=== PATIENT | male | born 1975 | race Asian ===

== ENCOUNTER 2024-01-17 05:11 | Emergency (ER) | payer BC, OTHER ==
[2024-01-17 05:44] VITALS: BP 145/89; PULSE 76; RESP 18; TEMP 98.2; BMI 25.0
[2024-01-17] MEDS ORDERED: ACETAMINOPHEN 325 MG TABLET (FP) ONE (05:54)
[2024-01-17] MEDS: ACETAMINOPHEN 325 MG TABLET (FP) PO ONE (06:20)
[2024-01-17 06:25] LABS: BASO % 0.6 % (0-2.0); EOS % 2.1 % (0-4.5); HEMATOCRIT 38.5 % (35.4-49); HEMOGLOBIN 12.5 GM/dL (11.7-16.9); LYMPH % 46.6 % (8-40); MCH 26.3 pg (25.7-33.7); MCHC 32.5 g/dl (32.0-35.9); MEAN CELL VOLUME 80.9 fl (80-96); MEAN PLT VOLUME 8.4 fl (7.5-11.1); MONO % 12.8 % (3.8-10.2); NEUT % 37.9 % (42.8-82.8); PLATELET COUNT 231 10^3/uL (134-434); RBC 4.76 M/mm3 (4.00-5.60); RDW 14.3 % (11.9-15.9); WHITE BLOOD COUNT 3.5 K/mm3 (4.0-10.0)
[2024-01-17 06:55] LABS: POTASSIUM 4.5 mmol/L (3.5-5.1)
[2024-01-17 06:57] LABS: CALCIUM 8.9 mg/dL (8.5-10.1)
[2024-01-17 06:58] LABS: ALBUMIN 3.9 g/dl (3.4-5.0); BLOOD UREA NITROGEN 13.8 mg/dL (7-18); MAGNESIUM 2.1 mg/dL (1.8-2.4)
[2024-01-17 07:01] LABS: CREATININE 0.9 mg/dL (0.55-1.3)
[2024-01-17 07:03] LABS: TOT PROT 7.7 g/dl (6.4-8.2)
[2024-01-17 07:12] LABS: INR 1.07 (0.83-1.09); PROTHROMBIN TIME (PATIENT) 12.1 SEC (9.7-13.0)
[2024-01-17 07:14] LABS: ACTIVATED PTT 33.9 SECONDS (25.2-36.5)
== END 2024-01-17 07:38 | disposition home or self-care (01) ==
LOC: JER 05:11
DX: R07.89 Other chest pain (principal)
CPT/HCPCS: 36415; 71046-TC-FY; 80053; 83735; 84484; 85025; 85610; 85730; 93005; 93010; 99285-25

== ENCOUNTER 2025-02-09 15:18 | Emergency (ER) | payer BC, OTHER ==
[2025-02-09 15:25] VITALS: TEMP 98.1; BMI 26.6
[2025-02-09 17:03] LABS: ABSOLUTE IMMATURE GRANULOCYTES 0.01 x10^3/uL (0.0-0.031); BASOPHILS # 0.02 x10^3/uL (0.01-0.08); EOSINOPHIL % 3.3 % (0.8-7.0); EOSINOPHILS # 0.15 x10^3/uL (0.04-0.54); MCHC 31.4 g/dl (32.3-36.5); MEAN CELL VOLUME 87.2 fl (79.0-92.2); MEAN PLT VOLUME 9.7 fl (9.4-12.4); MONOCYTE # 0.42 x10^3/uL (0.30-0.82); MONOCYTE % 9.3 % (5.3-12.2); RDW 12.1 % (12.2-16.1)
[2025-02-09 17:24] LABS: GLUCOSE,RANDOM 118.0 mg/dL (74-106); TOT PROT 7.7 g/dl (6.4-8.2)
[2025-02-09 17:25] LABS: CO2 23.0 mmol/L (21-32)
[2025-02-09 17:26] LABS: ALK PHOS 69.0 U/L (40-150)
[2025-02-09 17:29] LABS: CREATININE 0.78 mg/dL (0.55-1.3); SGOT/AST 33.0 U/L (5-34); SGPT/ALT 60.0 U/L (0-55)
[2025-02-09 17:48] LABS: HCV DIAGNOSTIC IN-HOUSE W/RFLX NON-REACTIVE (NONREACTIVE); HIV INTERPRETATION NEGATIVE (NEGATIVE)
[2025-02-09 18:24] VITALS: BP 130/91; PULSE 60; RESP 14
== END 2025-02-09 18:40 | disposition home or self-care (01) ==
LOC: JER 15:18
DX: R20.2 Paresthesia of skin (principal)
CPT/HCPCS: 36415; 70450-TC; 80053; 82962; 85025; 86803; 87389; 93005; 93010; 99285-25